=== PATIENT | male | born 1955 ===

== ENCOUNTER 2018-03-05 06:16 | Emergency (ER) | payer OTHER ==
--- NOTE | 2018-03-05 07:24 | ED PDOC ---
HPI: Nose Bleed Time Seen by Provider: 03/05/18 07:02 Chief Complaint (Nursing): ENT Problem Chief Complaint (Provider): nose bleed History Per: Patient History/Exam Limitations: no limitations Onset/Duration Of Symptoms: Intermittent Episodes Current Symptoms Are (Timing): Better Location Of Bleeding: Left Nare Symptoms Have Been: Episodic Additional Complaint(s): 62 year old male presents to the ED complaining of left nostril bleeding intermittently onset three days ago. Reports the bleeding stopped ten minutes after he place tissues inside the nose. Patient currently on Aspirin and Plavix. Denies trauma, chest pain, shortness of breath, or palpations. PMD: Kaiden Cunningham Past Medical History Reviewed: Historical Data, Nursing Documentation, Vital Signs Vital Signs: Last Vital Signs Temp 96.4 F L 03/05/18 06:22 Pulse 53 L 03/05/18 06:22 Resp 16 03/05/18 06:22 BP 158/94 H 03/05/18 06:22 Pulse Ox 99 03/05/18 06:22 - Medical History PMH: HTN, Hypercholesterolemia - Family History Family History: States: Unknown Family Hx - Social History Current smoker - smoking cessation education provided: No Alcohol: None Drugs: Denies - Allergies Allergies/Adverse Reactions: Allergies Allergy/AdvReac Type Severity Reaction Status Date / Time No Known Allergies Allergy Verified 03/05/18 06:22 Review of Systems ROS Statement: Except As Marked, All Systems Reviewed And Found Negative Constitutional: Negative for: Other (trauma) ENT: Positive for: Nose Discharge (bleeding from left nostril) Cardiovascular: Negative for: Chest Pain, Palpitations Respiratory: Negative for: Shortness of Breath Physical Exam - Reviewed Nursing Documentation Reviewed: Yes Vital Signs Reviewed: Yes - Physical Exam Appears: Positive for: Well, Non-toxic, No Acute Distress Head Exam: Positive for: ATRAUMATIC, NORMAL INSPECTION, NORMOCEPHALIC Skin: Positive for: Normal Color, Warm, Dry Eye Exam: Positive for: EOMI, Normal appearance, PERRL ENT: Positive for: Pharynx Is (clear), Other (Dried blood in L nares). Negative for: Nasal Congestion (No active bleeding, no ulcerations) Cardiovascular/Chest: Positive for: Regular Rate, Rhythm. Negative for: Murmur Respiratory: Positive for: Normal Breath Sounds. Negative for: Decreased Breath Sounds, Accessory Muscle Use, Respiratory Distress Neurologic/Psych: Positive for: Alert, Oriented (x3), Gait (steady). Negative for: Motor/Sensory Deficits - ECG O2 Sat by Pulse Oximetry: 99 (RA) Pulse Ox Interpretation: Normal Medical Decision Making Medical Decision Making: Time: 701 Initial Impression: Epitaxis Initial Plan: --Reevaluation Clinical Impression: Epitaxis Upon provider evaluation patient is medically stable, and requires no further treatment in the ED at this time. Patient will be discharged. Counseling was provided and all questions were answered regarding diagnosis and need for follow up with PMD. There is agreement to discharge plan. Return if symptoms persist or worsen. Scribe Attestation: Documented by Cheri Helms, acting as a scribe for Sharri Cabral MD Provider Scribe Attestation: All medical record entries made by the Scribe were at my direction and personally dictated by me. I have reviewed the chart and agree that the record accurately reflects my personal performance of the history, physical exam, medical decision making, and the department course for this patient. I have also personally directed, reviewed, and agree with the discharge instructions and disposition. Disposition - Clinical Impression Clinical Impression: Epistaxis - Patient ED Disposition Is Patient to be Admitted: No - Disposition Referrals: Kaiden Cunningham MD [Staff Provider] - [facility] [Outside] [facility] [place] [Outside] Disposition: Routine/Home Disposition Time: 07:23 Condition: STABLE Instructions: Nosebleeds Forms: [facility] ([place]an) Print Language: JAPANESE
[2018-03-05 07:55] VITALS: BP 132/76; PULSE 76; RESP 17; TEMP 98
[2018-03-06 17:33] VITALS: O2SAT 99
== END 2018-03-05 07:50 | disposition home or self-care (01) ==
LOC: H.ER 06:16
DX: R04.0 Epistaxis (principal); E78.00 Pure hypercholesterolemia, unspecified; I10 Essential (primary) hypertension; Z79.02 Long term (current) use of antithrombotics/antiplatelets; Z79.82 Long term (current) use of aspirin